=== PATIENT | male | born 1950 | race Caucasian/White ===

== ENCOUNTER 2017-06-30 14:52 | Emergency (ER) | payer MEDICARE, OTHER ==
--- NOTE | 2017-06-30 15:50 | EDM.PDOC ---
ED HPI GENERAL MEDICAL PROBLEM - General Chief Complaint: Lower Extremity Injury/Pain Stated Complaint: RIGHT KNEE PAIN Time Seen by Provider: 06/30/17 15:49 Source of Information: Reports: Patient History Limitations: Reports: No Limitations - History of Present Illness INITIAL COMMENTS - FREE TEXT/NARRATIVE: HISTORY AND PHYSICAL: []66-year-old male presents to ER with complaints of right knee pain History of Present Illness: []3 days ago the patient had been lifting heavy objects twisted and felt pain to his knee his took it easy over the weekend but continues to have pain Review of Systems: As per history of present illness and below otherwise all systems reviewed and negative. Past medical history: As per history of present illness and as reviewed below otherwise noncontributory. Surgical history: As per history of present illness and as reviewed below otherwise noncontributory. Social history: No reported history of drug or alcohol abuse. Family history: As per history of present illness and as reviewed below otherwise noncontributory. Physical exam: Alert and oriented male who is answering questions appropriately in full sentences without any shortness of breath looks nontoxic HEENT: Atraumatic, normocehpalic, pupils reactive, negative for conjunctival pallor or scleral icterus, mucous membranes moist, throat clear, neck supple, nontender, trachea midline. Lungs: Clear to auscultation, breath sounds equal bilaterally, chest non tender. Heart: S1S2, regular, negative for clicks, rubs, or JVD. Abdomen: Soft, nondistended, nontender. Negative for masses or hepatossplenmegaly. Negative for costovertebral tenderness. Pelvis: Stable nontender. Genitourinary: Deferred. Rectal: Deferred Extremities: Atraumatic, negative for cords or calf pain. Mild edema noted to the medial left right knee. Tenderness with palpation. Right medial knee Neurovascular unremarkable. Neuro: Awake, alert, oriented. Cranial nerves II through XII unremarkable. Cerebellum unremarkable. Motor and sensory unremarkable throughout. Exam nonfocal. Chest chest with patient that he has some minor edema to the anterior knee is a medial collateral ligamental strain Right knee has joint space that has been preserved fractures or dislocations grossly unremarkable unremarkable other than some small anterior edema. Second toe has a subluxation versus dislocation of second digit Diagnostics: [Right Knee x-ray /right second toe] Therapeutics: [] Impression: [Medial collateral ligamental strain] Plan: [Have patient follow-up with his primary care in 3 days if not improving Anti-inflammatory such as ibuprofen for discomfort Refer to toddler teacher for your toe subluxation/dislocation ] Definitive disposition and diagnosis as appropriate pending reevaluation and review of above. right knee Pain Score (Numeric/FACES): 7 - Related Data Allergies Allergy/AdvReac Type Severity Reaction Status Date / Time No Known Allergies Allergy Verified 06/30/17 15:34 Home Meds: Home Meds Celecoxib 200 mg PO DAILY 05/24/16 [History] Fluticasone/Salmeterol [Advair 250-50 Diskus] 1 each IH DAILY 05/24/16 [History] Folic Acid 2 mg PO BID 05/24/16 [History] Hydroxychloroquine [Plaquenil] 200 mg PO BID 05/24/16 [History] Leflunomide [Arava] 20 mg PO DAILY 05/24/16 [History] Finasteride 5 mg PO DAILY 03/12/17 [History] Gabapentin [Neurontin] 300 mg PO TID 03/12/17 [History] Multivitamin [Daily Multiple Vitamin] 1 tab PO DAILY 03/12/17 [History] Tamsulosin HCl 0.4 mg PO DAILY 03/12/17 [History] Past Medical History HEENT History: Reports: None Cardiovascular History: Reports: None Respiratory History: Reports: COPD, Other (See Below) Other Respiratory History: 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 Gastrointestinal History: Reports: None Genitourinary History: Reports: BPH Musculoskeletal History: Reports: RA Neurological History: Reports: None Psychiatric History: Reports: None Endocrine/Metabolic History: Reports: None Hematologic History: Reports: None Immunologic History: Reports: None Oncologic (Cancer) History: Reports: None Dermatologic History: Reports: None - Past Surgical History Head Surgeries/Procedures: Reports: None HEENT Surgical History: Reports: None Cardiovascular Surgical History: Reports: None Respiratory Surgical History: Reports: None GI Surgical History: Reports: Appendectomy, Colonoscopy Male Surgical History: Reports: Vasectomy Endocrine Surgical History: Reports: None Neurological Surgical History: Reports: None Musculoskeletal Surgical History: Reports: Shoulder Surgery, Other (See Below) Other Musculoskeletal Surgeries/Procedures:: Bilateral RTCR, bilateral CTR Oncologic Surgical History: Reports: None Social & Family History - Family History Family Medical History: Noncontributory - Tobacco Use Smoking Status *Q: Current Every Day Smoker (quit smoking cigarettes 09/12) Years of Tobacco use: 50 Packs/Tins Daily: 1 Used Tobacco, but Quit: Yes Month Tobacco Last Used: August - Caffeine Use Caffeine Use: Reports: Coffee - Recreational Drug Use Recreational Drug Use: No Drug Use in Last 12 Months: No Review of Systems - Review of Systems Review Of Systems: ROS reveals no pertinent complaints other than HPI. ED EXAM, GENERAL - Physical Exam Exam: See Below (See dictation) Course - Vital Signs Last Recorded V/S: Last Vital Signs Temp 36.1 C 06/30/17 14:52 Pulse 102 H 06/30/17 14:52 Resp 18 06/30/17 14:52 BP 146/85 H 06/30/17 14:52 Pulse Ox 95 06/30/17 14:52 - Orders/Labs/Meds Orders: Active Orders 24 hr Category Date Time Status Knee 3V Rt [CR] Stat Exams 06/30/17 15:49 Taken Toes Second Digit Rt T6 [CR] Stat Exams 06/30/17 15:54 Taken Departure - Departure Time of Disposition: 16:46 Disposition: Home, Self-Care 01 Condition: Good Clinical Impression: Muscle strain - Discharge Information Instructions: Muscle Strain, [id number] Referrals: Tariq Mendez MD [Primary Care Provider] - Forms: ED Department Discharge Additional Instructions: The following information is given to patients seen in the emergency department who are being discharged to home. This information is to outline your options for follow-up care. We provide all patients seen in our emergency department with a follow-up referral. The need for follow-up, as well as the timing and circumstances, are variable depending upon the specifics of your emergency department visit. If you don't have a primary care physician on staff, we will provide you with a referral. We always advise you to contact your personal physician following an emergency department visit to inform them of the circumstance of the visit and for follow-up with them and/or the need for any referrals to a consulting specialist. The emergency department will also refer you to a specialist when appropriate. This referral assures that you have the opportunity for followup care with a specialist. All of these measure are taken in an effort to provide you with optimal care, which includes your followup. Under all circumstances we always encourage you to contact your private physician who remains a resource for coordinating your care. When calling for followup care, please make the office aware that this follow-up is from your recent emergency room visit. If for any reason you are refused follow-up, please contact the [facility] emergency department at and asked to speak to the emergency department charge nurse.[facility] next My Podiatry [facility] - Podiatry [address] [place] [id number] - My Orders Last 24 Hours: My Active Orders 06/30/17 15:49 Knee 3V Rt [CR] Stat 06/30/17 15:54 Toes Second Digit Rt T6 [CR] Stat - Assessment/Plan Last 24 Hours: My Active Orders 06/30/17 15:49 Knee 3V Rt [CR] Stat 06/30/17 15:54 Toes Second Digit Rt T6 [CR] Stat
[2017-06-30 17:39] VITALS: BP 147/80
--- NOTE | 2017-07-01 14:40 | CR ---
EXAM DATE: 06/30/17 PATIENT'S AGE: 66 Patient: BERRY GREGG Facility: [place], [place] Site . Site : 1950 Study: XRay Knee Right [id number]/2/2017 4:24:38 PM Ordering Physician: Doctor Winn Final Report: INDICATION: Knee pain TECHNIQUE: Knee radiographs 3 views right COMPARISON: None FINDINGS: Bones: Alignment is normal. No acute fractures or aggressive osseous lesions seen. Joint spaces: No significant joint effusion is seen. The joint spaces of the medial, lateral, and patellofemoral compartments are unremarkable. Soft tissues: Moderate anterior soft tissue swelling is noted. No radiopaque foreign bodies are noted. IMPRESSION: 1. No acute osseous injuries are identified. Dictated by Kendrick Dobson MD @ 06/30/2017 4:41:23 PM Dictated by: Kendrick Dobson MD @ 06/30/2017 16:41:29 (Electronic Signature) Report Signed by Proxy. [facility] HOSPITALJen
--- NOTE | 2017-07-01 14:41 | CR ---
EXAM DATE: 06/30/17 PATIENT'S AGE: 66 Patient: BERRY GREGG Facility: [place], [place] Site . Site : 1950 Study: XRay Extremity Right TOES [id number]/2/2017 4:27:47 PM Ordering Physician: Doctor Winn Final Report: INDICATION: TOE PAIN TECHNIQUE: 2nd Toe radiograph 3 views right COMPARISON: None FINDINGS: Bones: Alignment is normal. No acute fractures or aggressive bone lesions identified. A radiographic marker is noted over the distal 2nd digit, designating the site of maximal reported symptoms. Joint spaces: Dorsal subluxation or dislocation of the 2nd metatarsal- phalangeal joint is noted. Soft tissues: Unremarkable. No radiopaque foreign bodies are seen. IMPRESSION: 1. Dorsal subluxation or dislocation of the 2nd metatarsal-phalangeal joint is noted. Dictated by: Kendrick Dobson MD @ 06/30/2017 16:46:08 (Electronic Signature) Report Signed by Proxy. SIMON
== END 2017-06-30 17:38 | disposition home or self-care (01) ==
LOC: MW.ED 14:52
DX: M25.561 Pain in right knee (principal)
CPT/HCPCS: 73562-26-RT; 73562-RT; 73660-26-T6; 73660-T6; 99283

== ENCOUNTER 2018-03-19 12:19 | Day surgery (SDC) | payer MEDICARE, OTHER ==
[~2018-03-19 12:19] MED LIST: Betamethasone Acetate/Betamethasone Sod Phosphate 30 MG/5 ML MDV ONE; Iopamidol 408 MG/ML 50 ML SDV ONE; Lidocaine 1% 0 ML ONE; Lidocaine 2% 5 ML SDV ONE; Ropivacaine 0.5% 5 MG/ML 30 ML SDV ONE
[2018-03-19] MEDS ORDERED: Lidocaine 2% 5 ML SDV ONE (14:00)
[2018-03-19] MEDS ORDERED: Iopamidol 408 MG/ML 50 ML SDV ONE (14:00)
[2018-03-19] MEDS ORDERED: Ropivacaine 0.5% 5 MG/ML 30 ML SDV ONE (14:00)
[2018-03-19] MEDS ORDERED: Betamethasone Acetate/Betamethasone Sod Phosphate 30 MG/5 ML MDV ONE (14:00)
--- NOTE | 2018-03-20 13:32 | OR ---
SURGEON: Harleen Browning D.O. DATE OF PROCEDURE: 03/19/2018 OR STAFF PRESENT: 1. Han Esparza. 2. Hai Gooden RT. PREOPERATIVE DIAGNOSES: 1. Failed back surgery syndrome. 2. Chronic low back pain. 3. Left sacroiliac joint dysfunction. POSTOPERATIVE DIAGNOSES: 1. Failed back surgery syndrome. 2. Chronic low back pain. 3. Left sacroiliac joint dysfunction. PROCEDURES PERFORMED: 1. Left sacroiliac joint injection. 2. Fluoroscopic guidance for needle placement. 3. Local with oral valium for sedation. SCREENING QUESTIONS: The patient answered "No" to all the followin. Are you allergic to iodine, Betadine or latex? 2. Do you have a bleeding disorder? 3. Do you have any joint replacements, heart valve replacements or a pacemaker? 4. Are you on any anti-inflammatories or blood thinners? 5. Do you have any current local or systemic infections? MEDICAL NECESSITY: This is a patient with a history of severe chronic low back pain and sacroiliac joint irritation with pain over the sacral sulcus and the buttocks region who comes in for the above diagnostic and therapeutic procedure. Please see medical necessity note attached. This procedure is being done in accordance with guidelines as written by the [employer] (JOSE). DESCRIPTION OF PROCEDURE: The patient had the procedure thoroughly explained including all possible risks, benefits and alternatives. Consent was signed in my clinic indicating understanding and willingness to proceed. The patient presented to the outpatient Surgery Center and was escorted to the dressing room to disrobe and change into a hospital gown. Preoperative vital signs were taken and stable. The patient reported that Valium was taken prior to the procedure. The patient was brought to the procedure room and placed in the prone position on the procedure room table. A pillow was placed under the hips in order to flatten the lumbar lordosis. The back was prepped with ChloraPrep and sterilely draped. All personnel in the operating room were dressed in appropriate attire including surgical scrubs, head and shoe covers. This was to ensure sterility while in the treatment room. During the time fluoroscopy was in use all personnel in the operating room wore lead daniel with thyroid collars. Sterile technique was used during the procedure. The patient was awake and conversant throughout the procedure. The fluoroscope was positioned to provide an oblique view of the sacroiliac joint. There was no evidence of infection at the site of needle insertion. The skin was anesthetized with 2% Lidocaine with a sterile 27-gauge 1.5 inch needle. Then under fluoroscopy a 22-gauge 3.5 inch spinal needle was placed within the sacroiliac joint in the lower one-third of the joint. IsoVue-200 contrast dye was injected under live fluoroscopy and no intravascular flow pattern was observed. After negative aspiration of heme, the following solution was injected: 0.5% Ropivacaine, Celestone and 2% Lidocaine. The patient tolerated the procedure well and vital signs were stable during and after the procedure. The staff escorted the patient to the recovery area and the patient was released to home in stable condition after a brief stay in the recovery room monitored by the nurse. The patient was given both oral and written discharge and follow up instructions. Recommended follow up in two weeks. The patient is able to contact the office if there are any additional problems or questions in the meantime. The patient was given discharge instruction and verbalizes understanding including understanding of those signs and symptoms that would require emergency care. Preoperative pain: 6/10. Postoperative pain: /10. Followup in the pain clinic in 3 weeks. HOGMILA / KARRI /[id number]
== END 2018-03-19 14:23 ==
LOC: MW.SDS 12:19
PROVIDERS: ATTEND Anesthesiology
DX: M96.1 Postlaminectomy syndrome, not elsewhere classified (principal); G89.29 Other chronic pain; M54.5 Low back pain; M19.90 Unspecified osteoarthritis, unspecified site; J44.9 Chronic obstructive pulmonary disease, unspecified; M06.9 Rheumatoid arthritis, unspecified; J84.10 Pulmonary fibrosis, unspecified; N42.9 Disorder of prostate, unspecified; M79.1 Myalgia; Z87.891 Personal history of nicotine dependence; Z79.899 Other long term (current) drug therapy; Z98.1 Arthrodesis status
CPT/HCPCS: G0260; J0702; J2795; Q9966

== ENCOUNTER 2018-03-25 16:54 | Emergency (ER) | payer MEDICARE, OTHER ==
[2018-03-25] MEDS ORDERED: Sodium Chloride 0.9% 10 ML Syringe FLUSH PRN (17:16)
[2018-03-25] MEDS ORDERED: Sodium Chloride 0.9% 2.5 ML Syringe FLUSH PRN (17:16)
[2018-03-25] MEDS ORDERED: Sodium Chloride 0.9% 1,000 ML IV ONE (17:25)
--- NOTE | 2018-03-25 17:25 | EDM.PDOC ---
ED HPI GENERAL MEDICAL PROBLEM - General Chief Complaint: Cardiovascular Problem Stated Complaint: HEART RATE CHE Time Seen by Provider: 03/25/18 17:12 Source of Information: Reports: Patient History Limitations: Reports: No Limitations - History of Present Illness INITIAL COMMENTS - FREE TEXT/NARRATIVE: History of present illness: []Patient was sent here by Dr. Mendez for evaluation of a rapid heart rate. Two days ago patient felt feverish with a dry cough and had several episodes of vomiting. He did feel his heart beating fast he notes that it did not feel irregular. Patient denies any diarrhea, chest pain, shortness of breath or abdominal pain. Review of systems: As per history of present illness and below otherwise all systems reviewed and negative. Past medical history: As per history of present illness and as reviewed below otherwise noncontributory. Surgical history: As per history of present illness and as reviewed below otherwise noncontributory. Social history: No reported history of drug or alcohol abuse. Family history: As per history of present illness and as reviewed below otherwise noncontributory. Physical exam: General: Well developed, well nourished in NAD HEENT: Atraumatic, normocephalic, pupils reactive, negative for conjunctival pallor or scleral icterus, mucous membranes moist, throat clear, neck supple, nontender, trachea midline. Lungs: Clear to auscultation, breath sounds have crackles in the right upper lung field there is no accessory muscle use or respiratory distress Heart: S1S2, regular, negative for clicks, rubs, or JVD. Abdomen: Soft, nondistended, nontender. Negative for masses or hepatosplenomegaly. Negative for costovertebral tenderness. Pelvis: Stable nontender. Genitourinary: Deferred. Rectal: Deferred. Extremities: Atraumatic, negative for cords or calf pain. Neurovascular unremarkable. Neuro: Awake, alert, oriented. Cranial nerves II through XII unremarkable. Cerebellum unremarkable. Motor and sensory unremarkable throughout. Exam nonfocal. Diagnostics: []cbc is normal, chemistry normal except a slightly elevated bilirubin 1.5 and BUN/creatinine 26/1.4., chest x-ray shows right upper lobe ingestion suspicious for pneumonia, and multiple areas of fibrosis. Therapeutics: []IV fluids with decreasing heart rate, DuoNeb, Rocephin IV, first dose by mouth of Zithromax given prior to discharge Impression: []Right upper lobe pneumonia, chronic urinary fibrosis Plan: []Patient offered admission but prefers to go home. He shouldn't has as a nebulizer at home and an inhaler for Advair. I will prescribe him Zithromax. He received ceftriaxone here in the ED. Definitive disposition and diagnosis as appropriate pending reevaluation and review of above. - Related Data Allergies Allergy/AdvReac Type Severity Reaction Status Date / Time No Known Allergies Allergy Verified 06/30/17 15:34 Home Meds: Home Meds Celecoxib 200 mg PO DAILY 05/24/16 [History] Fluticasone/Salmeterol [Advair 250-50 Diskus] 1 each IH DAILY 05/24/16 [History] Hydroxychloroquine [Plaquenil] 200 mg PO BID 05/24/16 [History] Leflunomide [Arava] 20 mg PO DAILY 05/24/16 [History] Finasteride 5 mg PO DAILY 03/12/17 [History] Multivitamin [Daily Multiple Vitamin] 1 tab PO DAILY 03/12/17 [History] Tamsulosin HCl 0.4 mg PO DAILY 03/12/17 [History] Albuterol [Ventolin HFA] 2 puff INH Q4HR PRN #1 inhaler 03/25/18 [Rx] Azithromycin [Zithromax] 250 mg PO DAILY #6 tab 03/25/18 [Rx] Past Medical History - Past Health History Medical/Surgical History: Denies Medical/Surgical History HEENT History: Reports: None Cardiovascular History: Reports: None Respiratory History: Reports: COPD, Other (See Below) Other Respiratory History: 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 Gastrointestinal History: Reports: None Genitourinary History: Reports: BPH Musculoskeletal History: Reports: RA Neurological History: Reports: None Psychiatric History: Reports: None Endocrine/Metabolic History: Reports: None Hematologic History: Reports: None Immunologic History: Reports: None Oncologic (Cancer) History: Reports: None Dermatologic History: Reports: None - Past Surgical History Head Surgeries/Procedures: Reports: None HEENT Surgical History: Reports: None Cardiovascular Surgical History: Reports: None Respiratory Surgical History: Reports: None GI Surgical History: Reports: Appendectomy, Colonoscopy Male Surgical History: Reports: Vasectomy Endocrine Surgical History: Reports: None Neurological Surgical History: Reports: None Musculoskeletal Surgical History: Reports: Shoulder Surgery, Other (See Below) Other Musculoskeletal Surgeries/Procedures:: Bilateral RTCR, bilateral CTR Oncologic Surgical History: Reports: None Social & Family History - Family History Family Medical History: Noncontributory - Tobacco Use Smoking Status *Q: Never Smoker - Caffeine Use Caffeine Use: Reports: Coffee ED ROS GENERAL - Review of Systems Review Of Systems: See Below (See history of present illness) ED EXAM, GENERAL - Physical Exam Exam: See Below (See history of present illness) Course - Vital Signs Last Recorded V/S: Last Vital Signs Temp 97.4 F 03/25/18 19:35 Pulse 118 H 03/25/18 19:35 Resp 16 03/25/18 19:35 BP 138/89 03/25/18 19:35 Pulse Ox 94 L 03/25/18 19:35 - Orders/Labs/Meds Orders: Active Orders 24 hr Category Date Time Status Cardiac Monitoring [RC] . DIRECTED Care 03/25/18 17:52 Active EKG Documentation Completion [RC] STAT Care 03/25/18 17:15 Active RT Aerosol Therapy [RC] ASDIRECTED Care 03/25/18 18:30 Active Chest 2V [CR] Stat Exams 03/25/18 17:25 Taken CULTURE BLOOD [BC] Stat Lab 03/25/18 17:27 Received CULTURE BLOOD [BC] Stat Lab 03/25/18 17:38 Received Blood Culture x2 Reflex Set [OM.PC] Stat Oth 03/25/18 17:23 Ordered Saline Lock Insert [OM.PC] Stat Oth 03/25/18 17:15 Ordered Labs: Laboratory Tests 03/25/18 03/25/18 Range/Units 17:28 17:28 WBC 8.93 (4.0-11.0) K/uL RBC 5.42 (4.50-5.90) M/uL Hgb 17.7 H (13.0-17.0) g/dL Hct 51.0 H (38.0-50.0) % MCV 94.1 (80.0-98.0) fL MCH 32.7 H (27.0-32.0) pg MCHC 34.7 (31.0-37.0) g/dL RDW Std Deviation 43.2 (28.0-62.0) fl RDW Coeff of Ken 13 (11.0-15.0) % Plt Count 163 (150-400) K/uL MPV 9.00 (7.40-12.00) fL Neut % (Auto) 71.8 (48.0-80.0) % Lymph % (Auto) 15.2 L (16.0-40.0) % [place] % (Auto) 11.9 (0.0-15.0) % Eos % (Auto) 0.9 (0.0-7.0) % Baso % (Auto) 0.2 (0.0-1.5) % Neut # (Auto) 6.4 H (1.4-5.7) K/uL Lymph # (Auto) 1.4 (0.6-2.4) K/uL [place] # (Auto) 1.1 H (0.0-0.8) K/uL Eos # (Auto) 0.1 (0.0-0.7) K/uL Baso # (Auto) 0.0 (0.0-0.1) K/uL Sodium 137 (136-148) mmol/L Potassium 3.9 (3.5-5.1) mmol/L Chloride 101 (98-107) mmol/L Carbon Dioxide 21.0 (21.0-32.0) mmol/L BUN 26 H (7.0-18.0) mg/dL Creatinine 1.4 H (0.8-1.3) mg/dL Est Cr Clr Drug Dosing 55.28 mL/min Estimated GFR (MDRD) 50.7 ml/min Glucose 141 H (74-106) mg/dL Calcium 9.2 (8.5-10.1) mg/dL Total Bilirubin 1.5 H (0.2-1.0) mg/dL AST 38 H (15-37) IU/L ALT 55 (14-63) IU/L Alkaline Phosphatase 104 (46-116) U/L Troponin I < 0.050 (0.000-0.056) ng/mL Total Protein 7.5 (6.4-8.2) g/dL Albumin 3.6 (3.4-5.0) g/dL Globulin 3.9 H (2.0-3.5) g/dL Albumin/Globulin Ratio 0.9 L (1.3-2.8) TSH 3rd Generation 3.08 (0.36-3.74) uIU/mL Meds: Medications Discontinued Medications Generic Name Dose Route Start Last Admin Trade Name Freq PRN Reason Stop Dose Admin Albuterol/Ipratropium 3 ml 03/25/18 18:30 03/25/18 18:39 Duoneb 3.0-0.5 Mg/3 Ml NEB 03/25/18 18:31 3 ml ONETIME ONE Administration Azithromycin 500 mg 03/25/18 18:41 03/25/18 18:52 Zithromax PO 03/25/18 18:42 500 mg ONETIME ONE Administration Sodium Chloride 1,000 mls @ 999 mls/hr 03/25/18 17:25 03/25/18 17:32 Normal Saline IV 03/25/18 18:25 999 mls/hr .Bolus ONE Administration Ceftriaxone Sodium/Dextrose 1 50 mls @ 100 mls/hr 03/25/18 18:27 03/25/18 18: 34 gm/ Premix IV 03/25/18 18:56 100 mls/hr ONETIME ONE Administration Sodium Chloride 10 ml 03/25/18 17:16 Saline Flush FLUSH ASDIRECTED PRN Keep Vein Open Sodium Chloride 2.5 ml 03/25/18 17:16 Saline Flush FLUSH ASDIRECTED PRN Keep Vein Open Departure - Departure Time of Disposition: 18:38 Disposition: Home, Self-Care 01 Condition: Good Clinical Impression: Right upper lobe pneumonia Qualifiers: Pneumonia type: due to unspecified organism Qualified Code(s): J18.1 - Lobar pneumonia, unspecified organism Prescriptions: Albuterol [Ventolin HFA] 2 puff INH Q4HR PRN #1 inhaler PRN Reason: Shortness Of Breath Azithromycin [Zithromax] 250 mg PO DAILY #6 tab Instructions: Community-Acquired Pneumonia, Adult, [id number] Referrals: Emely Sanchez DO [Primary Care Provider] - Forms: ED Department Discharge Additional Instructions: The following information is given to patients seen in the emergency department who are being discharged to home. This information is to outline your options for follow-up care. We provide all patients seen in our emergency department with a follow-up referral. The need for follow-up, as well as the timing and circumstances, are variable depending upon the specifics of your emergency department visit. If you don't have a primary care physician on staff, we will provide you with a referral. We always advise you to contact your personal physician following an emergency department visit to inform them of the circumstance of the visit and for follow-up with them and/or the need for any referrals to a consulting specialist. The emergency department will also refer you to a specialist when appropriate. This referral assures that you have the opportunity for follow-up care with a specialist. All of these measure are taken in an effort to provide you with optimal care, which includes your follow-up. Under all circumstances we always encourage you to contact your private physician who remains a resource for coordinating your care. When calling for follow-up care, please make the office aware that this follow-up is from your recent emergency room visit. If for any reason you are refused follow-up, please contact the [facility] Emergency Department at and asked to speak to the emergency department charge nurse. Take meds as directed, Tylenol Motrin for fevers and pain follow-up with primary care return if symptoms worsen or change. - My Orders Last 24 Hours: My Active Orders 03/25/18 17:15 EKG Documentation Completion [RC] STAT Saline Lock Insert [OM.PC] Stat 03/25/18 17:23 Blood Culture x2 Reflex Set [OM.PC] Stat 03/25/18 17:25 Chest 2V [CR] Stat 03/25/18 17:27 CULTURE BLOOD [BC] Stat 03/25/18 17:38 CULTURE BLOOD [BC] Stat 03/25/18 17:52 Cardiac Monitoring [RC] . DIRECTED 03/25/18 18:30 RT Aerosol Therapy [RC] ASDIRECTED - Assessment/Plan Last 24 Hours: My Active Orders 03/25/18 17:15 EKG Documentation Completion [RC] STAT Saline Lock Insert [OM.PC] Stat 03/25/18 17:23 Blood Culture x2 Reflex Set [OM.PC] Stat 03/25/18 17:25 Chest 2V [CR] Stat 03/25/18 17:27 CULTURE BLOOD [BC] Stat 03/25/18 17:38 CULTURE BLOOD [BC] Stat 03/25/18 17:52 Cardiac Monitoring [RC] . DIRECTED 03/25/18 18:30 RT Aerosol Therapy [RC] ASDIRECTED
[2018-03-25] MEDS ORDERED: cefTRIAXone 1 GM in Premix Bag 1 BAG IV ONE (18:27)
[2018-03-25] MEDS ORDERED: Albuterol/Ipratropium 3.0-0.5 MG/3 ML Neb Soln NEB ONE (18:30)
[2018-03-25 18:32] LABS: CHLORIDE,CL 101 mmol/L (98-107); SODIUM,NA 137 mmol/L (136-148)
[2018-03-25] MEDS ORDERED: Azithromycin 250 MG Tab PO ONE (18:41)
[2018-03-25 20:08] VITALS: BP 138/89
--- NOTE | 2018-03-26 09:42 | CR ---
EXAM DATE: 03/25/18 PATIENT'S AGE: 67 Patient: BERRY GREGG Facility: [place], [place] Site . Site : 1950 Study: XRay Chest [id number]/27/2018 6:21:07 PM Ordering Physician: Michael Alvares Final Report: INDICATION: Hypertension TECHNIQUE: Chest 2 views. COMPARISON: None FINDINGS/IMPRESSION: Normal cardiomediastinal silhouette. Emphysema with scattered areas of fibrosis. More focal patchy opacity in the right upper lobe may represent atelectasis or infection. No effusion or pneumothorax. No acute osseous abnormality. There are two surgical anchors in the right humeral head. Dictated by Farzaneh Proctor MD @ Mar 25 2018 6:24PM (Electronic Signature) Report Signed by Proxy. SIMON
== END 2018-03-25 19:35 | disposition home or self-care (01) ==
LOC: MW.ED 16:54
DX: J18.9 Pneumonia, unspecified organism (principal); N39.8 Other specified disorders of urinary system; Z79.899 Other long term (current) drug therapy
CPT/HCPCS: 36415; 71046; 80053; 84443; 84484; 85025; 87040; 93005; 94640; 96361; 96365; 99285; A9270; J0696; J7040

== ENCOUNTER 2019-08-31 12:14 | Day surgery (SDC) | payer MEDICARE, OTHER ==
[~2019-08-31 12:14] MED LIST changes: +Betamethasone Acetate/Betamethasone Sod Phosphate 30 MG/5 ML MDV EPIDUR ONE; -Betamethasone Acetate/Betamethasone Sod Phosphate 30 MG/5 ML MDV ONE; +Iopamidol 200-M 10 ML vial ITHECAL ONE; -Iopamidol 408 MG/ML 50 ML SDV ONE; -Lidocaine 1% 0 ML ONE; +Lidocaine 2% 5 ML SDV INJECT ONE; -Lidocaine 2% 5 ML SDV ONE; +Ropivacaine 0.5% 5 MG/ML 30 ML SDV INJECT ONE; -Ropivacaine 0.5% 5 MG/ML 30 ML SDV ONE
--- NOTE | 2019-08-31 17:30 | OR ---
SURGEON: Harleen Browning D.O. DATE OF PROCEDURE: 08/31/2019 PRIMARY SURGEON: Harleen Browning DO. ASSISTANTS: OR staff present: 1. RT Shantelle. 2. Flora Contreras RN. 3. Han Avery RN. PREOPERATIVE DIAGNOSES: 1. Failed back surgery syndrome. 2. Chronic left S1 radiculopathy. POSTOPERATIVE DIAGNOSES: 1. Failed back surgery syndrome. 2. Chronic left S1 radiculopathy. PROCEDURES PERFORMED: 1. Left transforaminal epidural steroid injection at S1. 2. Fluoroscopic guidance for needle placement. 3. Local with oral Valium for sedation. SCREENING QUESTIONS: The patient answered "no" to all of the following questions: 1. Are you allergic to iodine, Betadine or latex? 2. Do you have a bleeding disorder? 3. Do you have any joint replacements, heart valve replacements, or a pacemaker? 4. Are you allergic to anti-inflammatories or blood thinners? 5. Do you have any current local or systemic infections? MEDICAL NECESSITY: This is a patient with a history of chronic low back pain and lower extremity radicular pain in the above dermatomal pattern that comes in for the above diagnostic and therapeutic procedure. Pertinent positives and negatives for this suspected disease process along with the diagnostic findings and testing are in the patient's history and physical exam. The most salient feature includes radicular pain in the above dermatomal pattern. The patient had failed attempts at conservative therapy including physical therapy, nonsteroidal anti- inflammatory drugs, and other medications. No contraindications to perform this procedure including medical, no bleeding disorders or infections, no psychological, no antisocial personality disorder or active addiction disorder. There are no work-related issues, and, in general, the patient does not have any history of multiple prior interventions, surgeries or nerve blocks which have failed to return the patient to function. The patient's other symptoms to be treated include numbness, paresthesia, dysesthesia or hypoesthesia referred into the left lower extremity or any weakness in the involved myotome. This procedure is being performed in accordance with national guidelines as written by the [employer] (JOSE). DESCRIPTION OF PROCEDURE: The patient had the procedure thoroughly explained including risks, benefits and alternatives. Consent was signed in my clinic indicating understanding and willingness to proceed. The patient presented to [facility] [place] where the patient was escorted to the dressing room to disrobe and change into a hospital gown. Preoperative vital signs were taken and stable. The patient reported that Valium was taken prior to the procedure. The patient was brought to the procedure room and placed in the prone position on the table. A pillow was placed under the abdomen in order to flatten the lumbar lordosis. The back was prepped with ChloraPrep and sterilely draped. All personnel in the operating room were dressed in appropriate attire including surgical scrubs, head and shoe covers. This was to ensure sterility while in the treatment room. During the time fluoroscopy was in use, all personnel in the operating room wore lead daniel with thyroid collars. Sterile technique was used during the procedure. The fluoroscope was placed for the S1 transforaminal epidural steroid injection. There was no sign of infection at the skin site for needle insertion. The skin was anesthetized with 2% lidocaine with a 27 gauge 1-1/2 inch needle. Then, a 22 gauge 3-1/2 inch spinal needle, advanced to the S1. Under direct fluoroscopic guidance needle position was verified in three views; AP, oblique and lateral, with 0.2 cubic centimeters increments of Isovue-200 dye. No intravascular flow pattern was observed under live fluoroscopy. Then 12 milligrams of Celestone was slowly injected after negative aspiration of heme, cerebrospinal fluid and no paresthesias were noted. The needle was cleared prior to removal from the skin. No adverse reactions were noted. The patient was brought to the recovery room awake and in good condition by my staff. The patient was monitored and discharge instructions were given after a brief stay in the recovery area. Both oral and written discharge and follow up instructions were given. The patient will follow up in the clinic in 3-4 weeks post procedure to evaluate the efficacy. The patient verbalized understanding including understanding of those signs and symptoms that would require emergency care and knows how to contact the office if there are any problems or questions in the meantime. PREOPERATIVE PAIN: 7/10. POSTOPERATIVE PAIN: 0/10. FOLLOWUP: Follow up in the Pain Clinic in 1 month. HOGMILA / KARRI /[id number]
== END 2019-08-31 14:59 | disposition home or self-care (01) ==
LOC: MW.SDS 12:14
PROVIDERS: ATTEND Anesthesiology
DX: M96.1 Postlaminectomy syndrome, not elsewhere classified (principal); M47.26 Other spondylosis with radiculopathy, lumbar region; M43.16 Spondylolisthesis, lumbar region; M53.3 Sacrococcygeal disorders, not elsewhere classified; M19.90 Unspecified osteoarthritis, unspecified site; M06.9 Rheumatoid arthritis, unspecified; J44.9 Chronic obstructive pulmonary disease, unspecified; Z79.899 Other long term (current) drug therapy; Z87.891 Personal history of nicotine dependence
CPT/HCPCS: 64483; J0702; 62323

== ENCOUNTER 2023-03-12 14:20 | Emergency (ER) | payer MEDICARE, OTHER ==
[2023-03-12] MEDS ORDERED: Furosemide 40 MG/4 ML VIAL IVPUSH STA (14:40)
[2023-03-12 15:01] LABS: BASOPHILS PERCENT AUTO 0.4 % (0.0-1.5); EOSINOPHILS ABSOLUTE AUTO 0.1 K/uL (0.0-0.7); EOSINOPHILS PERCENT AUTO 1.2 % (0.0-7.0); HEMATOCRIT 48.2 % (38.0-50.0); HEMOGLOBIN 15.8 g/dL (13.0-17.0); LYMPHOCYTES ABSOLUTE AUTO 0.9 K/uL (0.6-2.4); LYMPHOCYTES PERCENT AUTO 13.6 % (16.0-40.0); MEAN CORPUSCULAR HEMOGLOBIN 32.9 pg (27.0-32.0); MEAN CORPUSCULAR HGB CONC 32.8 g/dL (31.0-37.0); MEAN CORPUSCULAR VOLUME 100.4 fL (80.0-98.0); MONOCYTES ABSOLUTE AUTO 0.7 K/uL (0.0-0.8); MONOCYTES PERCENT AUTO 10.4 % (0.0-15.0); NEUTROPHILS PERCENT AUTO 74.4 % (48.0-80.0); NRBC ABSOLUTE 0 K/uL; PLATELET COUNT,PLT 138 K/uL (150-400); WHITE BLOOD CELL COUNT,WBC 6.76 K/uL (4.0-11.0)
[2023-03-12 15:11] LABS: CALCIUM 8.4 mg/dL (8.5-10.1); CARBON DIOXIDE,CO2 27.9 mmol/L (21.0-32.0); CREATININE 1.5 mg/dL (0.8-1.3); EST CRCL DRUG DOSING (CG) 48.11 mL/min; POTASSIUM,K 4.2 mmol/L (3.5-5.1)
[2023-03-12] MEDS ORDERED: Nystatin Topical Powder 15 GM Bottle TOP ONE (18:31)
[2023-03-13 04:08] VITALS: BP 107/74; PULSE 92
== END 2023-03-12 22:20 ==
LOC: MW.ED 14:20
DX: J84.10 Pulmonary fibrosis, unspecified (principal); J44.9 Chronic obstructive pulmonary disease, unspecified; J96.91 Respiratory failure, unspecified with hypoxia; Z86.16 Personal history of COVID-19
CPT/HCPCS: 36415; 51702; 71045; 80048; 83880; 84484; 85025; 93005; 96374; 99285; A9270; J1940